=== PATIENT | female | born 1985 | race Caucasian/White ===

== ENCOUNTER 2021-01-20 19:24 | Emergency (ER) | payer MEDICAID ==
--- NOTE | 2021-01-20 19:38 | EDM.PDOC ---
ED HPI GENERAL MEDICAL PROBLEM - General Chief Complaint: General Stated Complaint: VOMITING Time Seen by Provider: 01/20/21 19:30 - History of Present Illness INITIAL COMMENTS - FREE TEXT/NARRATIVE: 5-year-old female presents the emergency room with nausea and vomiting. Patient had Vini-en-Y bariatric surgery done about a week ago at this point she is unable to keep much of anything down she gets a lot of nausea and vomiting with the smallest amounts. She is not aware of any fevers or chills her pain is not excessively poor. This surgery was done approximately a week ago. Another not then not be able to keep anything down patient seems to be doing okay. Abdomen Pain Score (Numeric/FACES): 4 - Related Data Allergies Allergy/AdvReac Type Severity Reaction Status Date / Time amoxicillin Allergy Severe Anaphylactic Verified 01/20/21 19:43 Shock ampicillin Allergy Severe Swelling Verified 01/20/21 19:44 clavulanic acid Allergy Severe Hives Verified 01/20/21 19:43 [From Augmentin] Penicillins Allergy Severe Anaphylactic Verified 01/20/21 19:43 Shock Sulfa (Sulfonamide Allergy Severe Anaphylactic Verified 01/20/21 19:43 Antibiotics) Shock Home Meds: Home Meds Ondansetron [Zofran ODT] 4 mg PO Q6H PRN 5 Days #12 tab.dis 02/26/20 [Rx] Hydrocodone Bit/Homatrop Me-Br [Hydrocodone Compound Syrup] 10 - 15 ml PO ASDIRECTED PRN 01/20/21 [History] Metoclopramide HCl [Reglan] 10 mg PO Q6H PRN 01/20/21 [History] Past Medical History HEENT History: Reports: Impaired Vision Other HEENT History: wears glasses Cardiovascular History: Reports: None Respiratory History: Reports: None Gastrointestinal History: Reports: None Genitourinary History: Reports: Pyelonephritis [employer]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: Musculoskeletal History: Reports: None Neurological History: Reports: None Psychiatric History: Reports: None Endocrine/Metabolic History: Reports: None Hematologic History: Reports: None Dermatologic History: Reports: None - Infectious Disease History Infectious Disease History: Reports: Chicken Pox - Past Surgical History HEENT Surgical History: Reports: Tonsillectomy Female Surgical History: Reports: Tubal Ligation Social & Family History - Family History Family Medical History: No Pertinent Family History - Caffeine Use Caffeine Use: Reports: Soda ED ROS GENERAL - Review of Systems Review Of Systems: See Below Constitutional: Reports: No Symptoms HEENT: Reports: No Symptoms Respiratory: Reports: No Symptoms Cardiovascular: Reports: No Symptoms GI/Abdominal: Reports: Abdominal Pain, Nausea, Vomiting : Reports: No Symptoms, Other (Decreased urinary volumes) Neurological: Reports: No Symptoms ED EXAM, GENERAL - Physical Exam Exam: See Below Exam Limited By: No Limitations General Appearance: Alert, No Apparent Distress Head: Atraumatic, Normocephalic Neck: Normal Inspection, Supple, Non-Tender, Full Range of Motion Respiratory/Chest: No Respiratory Distress, Lungs Clear, Normal Breath Sounds Cardiovascular: Regular Rate, Rhythm, No Edema, No Murmur GI/Abdominal: Normal Bowel Sounds, Soft, Non-Tender Back Exam: Normal Inspection. No: CVA Tenderness (L), CVA Tenderness (R) Extremities: Normal Inspection, No Pedal Edema Course - Vital Signs Last Recorded V/S: Last Vital Signs Temp 36.1 C 01/20/21 19:41 Pulse 96 01/20/21 19:41 Resp 20 01/20/21 19:41 BP 139/5 L 01/20/21 19:41 Pulse Ox 97 01/20/21 19:41 - Orders/Labs/Meds Orders: Active Orders 24 hr Category Date Time Status Lactated Ringers [Ringers, Lactated] 1,000 ml Med 01/20/21 19:45 Active IV ASDIRECTED Medication Orders Lactated Ringer's (Ringers, Lactated) 1,000 mls @ 125 mls/hr IV ASDIRECTED AYANA Labs: Laboratory Tests 01/20/21 01/20/21 Range/Units 19:58 19:58 WBC 5.52 (3.98-10.04) K/mm3 RBC 4.76 (3.98-5.22) M/mm3 Hgb 14.0 (11.2-15.7) gm/dl Hct 42.4 (34.1-44.9) % MCV 89.1 (79.4-94.8) fl MCH 29.4 (25.6-32.2) pg MCHC 33.0 (32.2-35.5) g/dl RDW Std Deviation 43.1 (36.4-46.3) fL Plt Count 265 (182-369) K/mm3 MPV 10.3 (9.4-12.3) fl Neut % (Auto) 65.9 (34.0-71.1) % Lymph % (Auto) 24.3 (19.3-51.7) % [place] % (Auto) 7.1 (4.7-12.5) % Eos % (Auto) 2.0 (0.7-5.8) Baso % (Auto) 0.5 (0.1-1.2) % Neut # (Auto) 3.64 (1.56-6.13) K/mm3 Lymph # (Auto) 1.34 (1.18-3.74) K/mm3 [place] # (Auto) 0.39 H (0.24-0.36) K/mm3 Eos # (Auto) 0.11 (0.04-0.36) K/mm3 Baso # (Auto) 0.03 (0.01-0.08) K/mm3 Sodium 142 (136-145) mEq/L Potassium 4.0 (3.5-5.1) mEq/L Chloride 103 (98-107) mEq/L Carbon Dioxide 28 (21-32) mEq/L Anion Gap 15.0 (5-15) BUN 14 (7-18) mg/dL Creatinine 1.1 H (0.55-1.02) mg/dL Est Cr Clr Drug Dosing 68.10 mL/min Estimated GFR (MDRD) 57 (>60) mL/min BUN/Creatinine Ratio 12.7 L (14-18) Glucose 97 (70-99) mg/dL Calcium 9.1 (8.5-10.1) mg/dL Total Bilirubin 0.6 (0.2-1.0) mg/dL AST 21 (15-37) U/L ALT 48 (14-59) U/L Alkaline Phosphatase 88 (46-116) U/L Total Protein 7.7 (6.4-8.2) g/dl Albumin 3.9 (3.4-5.0) g/dl Globulin 3.8 gm/dL Albumin/Globulin Ratio 1.0 (1-2) Lipase 356 (73-393) U/L Meds: Medications Generic Name Dose Route Start Last Admin Trade Name Freq PRN Reason Stop Dose Admin Lactated Ringer's 1,000 mls @ 125 mls/hr 01/20/21 19:45 Ringers, Lactated IV ASDIRECTED AYANA Discontinued Medications Generic Name Dose Route Start Last Admin Trade Name Viviane LEONE Reason Stop Dose Admin Lactated Ringer's 500 mls @ 999 mls/hr 01/20/21 19:42 01/20/21 20:00 Ringers, Lactated IV 01/20/21 20:12 999 mls/hr .BOLUS ONE Administration Metoclopramide HCl 5 mg 01/20/21 20:01 01/20/21 20:05 Metoclopramide 10 Mg/2 Ml Sdv IVPUSH 01/20/21 20:02 5 mg ONETIME ONE Administration - Re-Assessments/Exams Free Text/Narrative Re-Assessment/Exam: 01/20/21 20:05 The patient has been doing better with Reglan we will give her a dose of this as well. 01/20/21 20:59 He seemed a liter of fluids and nausea medication and she is doing much better her labs are nonconcerning. I recommended she follow-up with her surgeon later this week. Departure - Departure Time of Disposition: 20:59 Disposition: Home, Self-Care 01 Clinical Impression: Nausea and vomiting - Discharge Information Referrals: Anette Wetzel PA-C [Primary Care Provider] - Forms: ED Department Discharge Additional Instructions: Return to the emergency room with any questions problems worsening symptoms Push fluids use your Reglan as directed. Follow-up with your surgeon later this week if at all possible. Sepsis Event Note (ED) - Focused Exam Vital Signs: Vital Signs Temp Pulse Resp BP Pulse Ox 01/20/21 19:41 36.1 C 96 20 139/5 L 97 - My Orders Last 24 Hours: My Active Orders 01/20/21 19:45 Lactated Ringers [Ringers, Lactated] 1,000 ml IV ASDIRECTED - Assessment/Plan Last 24 Hours: My Active Orders 01/20/21 19:45 Lactated Ringers [Ringers, Lactated] 1,000 ml IV ASDIRECTED
[2021-01-20] MEDS ORDERED: Lactated Ringers 500 ML IV ONE (19:42)
[2021-01-20] MEDS ORDERED: Lactated Ringers 1,000 ML IV SCH (19:45)
[2021-01-20] MEDS ORDERED: Metoclopramide 10 MG/2 ML SDV IVPUSH ONE (20:01)
== END 2021-01-20 21:15 | disposition home or self-care (01) ==
LOC: JD.ED 19:24
DX: R11.2 Nausea with vomiting, unspecified (principal); Z88.0 Allergy status to penicillin; Z88.1 Allergy status to other antibiotic agents; Z88.2 Allergy status to sulfonamides
CPT/HCPCS: 36415; 80053; 83690; 85025; 96361; 96374; 99284; J2765; J7120; 99283

== ENCOUNTER 2021-02-13 12:53 | Emergency (ER) | payer MEDICAID ==
[2021-02-13] MEDS ORDERED: Ondansetron 4 MG/2 ML SDV IVPUSH ONE (13:11)
[2021-02-13] MEDS ORDERED: Sodium Chloride 0.9% 10 ML Syringe FLUSH PRN (13:11)
[2021-02-13] MEDS ORDERED: Lactated Ringers 1,000 ML IV SCH (13:15)
[2021-02-13] MEDS ORDERED: diphenhydrAMINE 50 MG/ML SDV IVPUSH ONE (13:48)
[2021-02-13] MEDS ORDERED: methylPREDNISolone Sodium Succinate 125 MG/2 ML SDV IVPUSH ONE (13:48)
--- NOTE | 2021-02-13 14:29 | EDM.PDOC ---
ED HPI GENERAL MEDICAL PROBLEM - General Chief Complaint: Gastrointestinal Problem Stated Complaint: DEHYDRATED Time Seen by Provider: 02/13/21 13:04 Source of Information: Reports: Patient History Limitations: Reports: No Limitations - History of Present Illness INITIAL COMMENTS - FREE TEXT/NARRATIVE: The patient presents with nausea, vomiting and possible dehydration. She had Vini-en-Y gastric bypass surgery by Dr Stock at [facility] in [place] about a month ago. She cannot keep anything down. She feels like she is dehydrated. She has no pain until she eats or drinks. She will get pain in the upper abdomen. She has nausea and vomiting. She has lost over 50 pounds. She has no fever, chills, cough, chest pain, shortness of breath, dysuria or diarrhea. Onset: Gradual Duration: Week(s): Location: Reports: Abdomen Quality: Reports: Sharp Severity: Moderate Improves with: Reports: None Worsens with: Reports: Eating Associated Symptoms: Reports: Nausea/Vomiting. Denies: Chest Pain, Cough, Fever/Chills, Headaches, Shortness of Breath - Related Data Allergies Allergy/AdvReac Type Severity Reaction Status Date / Time amoxicillin Allergy Severe Anaphylactic Verified 02/13/21 13:06 Shock ampicillin Allergy Severe Swelling Verified 02/13/21 13:06 clavulanic acid Allergy Severe Hives Verified 02/13/21 13:06 [From Augmentin] Penicillins Allergy Severe Anaphylactic Verified 02/13/21 13:06 Shock Sulfa (Sulfonamide Allergy Severe Anaphylactic Verified 02/13/21 13:06 Antibiotics) Shock diatrizoate meglumine Allergy Hives Verified 02/13/21 14:33 [From Gastrografin] diatrizoate sodium Allergy Hives Verified 02/13/21 14:33 [From Gastrografin] Iodinated Contrast Media Allergy Hives Verified 02/13/21 14:32 ondansetron [From Zofran] Allergy Hives Verified 02/13/21 13:55 Home Meds: Home Meds Omeprazole 1 cap PO DAILY 01/29/21 [History] Metoclopramide HCl [Reglan] 10 mg PO Q6H PRN #30 tablet 02/13/21 [Rx] traMADol [Ultram] 50 - 100 mg PO Q6H PRN #15 tab 02/13/21 [Rx] Past Medical History HEENT History: Reports: Impaired Vision Other HEENT History: wears glasses Cardiovascular History: Reports: None Respiratory History: Reports: None Gastrointestinal History: Reports: None Genitourinary History: Reports: 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: Musculoskeletal History: Reports: None Neurological History: Reports: None Psychiatric History: Reports: None Endocrine/Metabolic History: Reports: None Hematologic History: Reports: None Dermatologic History: Reports: None - Infectious Disease History Infectious Disease History: Reports: Chicken Pox - Past Surgical History HEENT Surgical History: Reports: Tonsillectomy GI Surgical History: Reports: Bariatric Procedure Female Surgical History: Reports: Tubal Ligation Social & Family History - Family History Family Medical History: No Pertinent Family History - Tobacco Use Tobacco Use Status *Q: Never Tobacco User Second Hand Smoke Exposure: No - Caffeine Use Caffeine Use: Reports: None - Recreational Drug Use Recreational Drug Use: No ED ROS GENERAL - Review of Systems Review Of Systems: See Below Constitutional: Reports: No Symptoms HEENT: Reports: No Symptoms Respiratory: Reports: No Symptoms Cardiovascular: Reports: No Symptoms Endocrine: Reports: No Symptoms GI/Abdominal: Reports: Abdominal Pain, Nausea, Vomiting. Denies: Diarrhea : Reports: No Symptoms Musculoskeletal: Reports: No Symptoms ED EXAM, GI/ABD - Physical Exam Exam: See Below Exam Limited By: No Limitations General Appearance: Alert, No Apparent Distress Ears: Normal External Exam Nose: Normal Inspection Head: Atraumatic, Normocephalic Neck: Normal Inspection Respiratory/Chest: No Respiratory Distress, Lungs Clear, Normal Breath Sounds Cardiovascular: Regular Rate, Rhythm, No Edema, No Murmur GI/Abdominal Exam: Soft, No Organomegaly, No Mass, Tender (Mild to moderate pain upon palpation to the upper abdomen) Course - Vital Signs Last Recorded V/S: Last Vital Signs Temp 97 F 02/13/21 13:04 Pulse 95 02/13/21 13:04 Resp 16 02/13/21 13:04 BP 135/85 02/13/21 13:04 Pulse Ox 97 02/13/21 13:04 - Orders/Labs/Meds Orders: Active Orders 24 hr Category Date Time Status Peripheral IV Care [RC] . DIRECTED Care 02/13/21 13:11 Active UA W/MICROSCOPIC [URIN] Stat Lab 02/13/21 13:11 Ordered Lactated Ringers [Ringers, Lactated] 1,000 ml Med 02/13/21 13:15 Active IV ASDIRECTED Sodium Chloride 0.9% [Saline Flush] Med 02/13/21 13:11 Active 10 ml FLUSH ASDIRECTED PRN ED Antiemetic Medication Reflex [OM.PC] Stat Oth 02/13/21 13:13 Ordered Peripheral IV Insertion Adult [OM.PC] Stat Oth 02/13/21 13:11 Ordered Medication Orders Lactated Ringer's (Ringers, Lactated) 1,000 mls @ 1,000 mls/hr IV ASDIRECTED AYANA Last Admin: 02/13/21 13:46 Dose: 1,000 mls/hr Documented by: CHULA Sodium Chloride (Sodium Chloride 0.9% 10 Ml Syringe) 10 ml FLUSH ASDIRECTED PRN PRN Reason: Keep Vein Open Last Admin: 02/13/21 13:46 Dose: 10 ml Documented by: CHULA Labs: Laboratory Tests 02/13/21 02/13/21 02/13/21 Range/Units 13:59 13:59 13:59 WBC 2.65 L (3.98-10.04) K/mm3 RBC 4.84 (3.98-5.22) M/mm3 Hgb 14.4 (11.2-15.7) gm/dl Hct 42.5 (34.1-44.9) % MCV 87.8 (79.4-94.8) fl MCH 29.8 (25.6-32.2) pg MCHC 33.9 (32.2-35.5) g/dl RDW Std Deviation 46.1 (36.4-46.3) fL Plt Count 162 L D (182-369) K/mm3 MPV 11.2 (9.4-12.3) fl Neut % (Auto) 47.5 (34.0-71.1) % Lymph % (Auto) 38.9 (19.3-51.7) % [place] % (Auto) 10.9 (4.7-12.5) % Eos % (Auto) 1.9 (0.7-5.8) Baso % (Auto) 0.8 (0.1-1.2) % Neut # (Auto) 1.26 L (1.56-6.13) K/mm3 Lymph # (Auto) 1.03 L (1.18-3.74) K/mm3 [place] # (Auto) 0.29 (0.24-0.36) K/mm3 Eos # (Auto) 0.05 (0.04-0.36) K/mm3 Baso # (Auto) 0.02 (0.01-0.08) K/mm3 Sodium 144 (136-145) mEq/L Potassium 3.4 L (3.5-5.1) mEq/L Chloride 105 (98-107) mEq/L Carbon Dioxide 22 (21-32) mEq/L Anion Gap 20.4 H (5-15) BUN 6 L (7-18) mg/dL Creatinine 0.7 (0.55-1.02) mg/dL Est Cr Clr Drug Dosing 107.01 mL/min Estimated GFR (MDRD) > 60 (>60) mL/min BUN/Creatinine Ratio 8.6 L (14-18) Glucose 77 (70-99) mg/dL Calcium 9.0 (8.5-10.1) mg/dL Magnesium 1.5 L (1.8-2.4) mg/dL Total Bilirubin 0.7 (0.2-1.0) mg/dL AST 27 (15-37) U/L ALT 35 (14-59) U/L Alkaline Phosphatase 77 (46-116) U/L Total Protein 7.0 (6.4-8.2) g/dl Albumin 3.7 (3.4-5.0) g/dl Globulin 3.3 gm/dL Albumin/Globulin Ratio 1.1 (1-2) Lipase 303 (73-393) U/L HCG, Qual Negative (NEGATIVE) Meds: Medications Generic Name Dose Route Start Last Admin Trade Name Freq PRN Reason Stop Dose Admin Lactated Ringer's 1,000 mls @ 1,000 mls/hr 02/13/21 13:15 02/13/21 13:46 Ringers, Lactated IV 1,000 mls/hr ASDIRECTED AYANA Administration Sodium Chloride 10 ml 02/13/21 13:11 02/13/21 13:46 Sodium Chloride 0.9% 10 Ml Syringe FLUSH 10 ml ASDIRECTED PRN Administration Keep Vein Open Discontinued Medications Generic Name Dose Route Start Last Admin Trade Name Freq PRN Reason Stop Dose Admin Diatrizoate Meglum/Diatrizoate Sod 90 ml 02/13/21 14:32 02/13/21 14:33 Diatrizoate Meglumine/Diatrizoate Sodium 37% 120 Ml Bottle PO 02/13/21 14:33 45 ml ONETIME ONE Administration Diphenhydramine HCl 50 mg 02/13/21 13:48 02/13/21 14:03 Diphenhydramine 50 Mg/Ml Sdv IVPUSH 02/13/21 13:49 50 mg ONETIME ONE Administration Lactated Ringer's 1,000 mls @ 1,000 mls/hr 02/13/21 15:11 02/13/21 15:27 Ringers, Lactated IV 02/13/21 16:10 1,000 mls/hr .BOLUS ONE Administration Iopamidol 100 ml 02/13/21 14:32 02/13/21 14:33 Iopamidol 612 Mg/Ml 100 Ml Bottle IVPUSH 02/13/21 14:33 100 ml ONETIME ONE Administration Iopamidol 50 ml 02/13/21 14:32 02/13/21 14:33 Iopamidol 612 Mg/Ml 50 Ml Sdv IVPUSH 02/13/21 14:33 50 ml ONETIME ONE Administration Methylprednisolone Sodium Succinate 125 mg 02/13/21 13:48 02/13/21 14:03 Methylprednisolone Sodium Succinate 125 Mg/2 Ml Sdv IVPUSH 02/13/21 13:49 125 mg ONETIME ONE Administration Ondansetron HCl 4 mg 02/13/21 13:11 02/13/21 13:46 Ondansetron 4 Mg/2 Ml Sdv IVPUSH 02/13/21 13:12 4 mg ONETIME ONE Administration Sodium Chloride 10 ml 02/13/21 14:32 02/13/21 14:33 Sodium Chloride 0.9% 10 Ml Syringe FLUSH 02/13/21 14:33 10 ml ONETIME ONE Administration - Re-Assessments/Exams Free Text/Narrative Re-Assessment/Exam: 02/13/21 14:32 I ordered an IV LR 1L bolus, zofran 4mg IV, labs, UA and a CT of her abdomen and pelvis with IV and oral contrast. 02/13/21 14:34 Her WBC was low at 2.65. Her K was low at 3.4. Her anion gap was elevated at 20.4. Her magnesium is low at 1.5. Her lipase is normal. Her HCG is negative. She started breaking out in hives. I had her stop drinking the oral contrast. She may be allergic to that or the zofran. I ordered solu-medrol 125mg IV and benadryl 50mg IV. 02/13/21 15:[address] shows spleen is slightly enlarged with a length of 14.3 cm. Previous stomach surgery is noted. No bowel dilatation or inflammatory change is seen. Mild increased stool is seen throughout the colon. No additional abnormality is appreciated on CT study of the abdomen and pelvis. She feels a little better. I have called [facility] in [place] and talked with Dr Stock. I will try her on some reglan and she should call the coordinator tomorrow and try to get in sooner. Departure - Departure Time of Disposition: 16:40 Disposition: Home, Self-Care 01 Condition: Good Clinical Impression: Nausea and vomiting Qualifiers: Vomiting type: unspecified Vomiting Intractability: unspecified Qualified Code(s): R11.2 - Nausea with vomiting, unspecified Abdominal pain Qualifiers: Abdominal location: upper abdomen, unspecified Qualified Code(s): R10.10 - Upper abdominal pain, unspecified - Discharge Information *PRESCRIPTION DRUG MONITORING PROGRAM REVIEWED*: No *COPY OF PRESCRIPTION DRUG MONITORING REPORT IN PATIENT CRISTOFER: No Prescriptions: Metoclopramide HCl [Reglan] 10 mg PO Q6H PRN #30 tablet PRN Reason: Nausea/Vomiting traMADol [Ultram] 50 - 100 mg PO Q6H PRN #15 tab PRN Reason: Pain Referrals: Anette Wetzel PA-C [Primary Care Provider] - 1 Week Forms: ED Department Discharge Additional Instructions: Drink more fluids. Take the reglan every 6 hours as needed for nausea and vomiting. Take the ultram 1 to 2 pills every 6 hours as needed for pain. The ultram can cause constipation so keep drinking fluids or take a stool softener like colace. Call Dr Stock's office tomorrow. Please return if you are worse. Sepsis Event Note (ED) - Evaluation Sepsis Screening Result: No Definite Risk - Focused Exam Vital Signs: Vital Signs Temp Pulse Resp BP Pulse Ox 02/13/21 13:04 97 F 95 16 135/85 97 - My Orders Last 24 Hours: My Active Orders 02/13/21 13:11 Peripheral IV Care [RC] . DIRECTED UA W/MICROSCOPIC [URIN] Stat Sodium Chloride 0.9% [Saline Flush] 10 ml FLUSH ASDIRECTED PRN Peripheral IV Insertion Adult [OM.PC] Stat 02/13/21 13:13 ED Antiemetic Medication Reflex [OM.PC] Stat 02/13/21 13:15 Lactated Ringers [Ringers, Lactated] 1,000 ml IV ASDIRECTED - Assessment/Plan Last 24 Hours: My Active Orders 02/13/21 13:11 Peripheral IV Care [RC] . DIRECTED UA W/MICROSCOPIC [URIN] Stat Sodium Chloride 0.9% [Saline Flush] 10 ml FLUSH ASDIRECTED PRN Peripheral IV Insertion Adult [OM.PC] Stat 02/13/21 13:13 ED Antiemetic Medication Reflex [OM.PC] Stat 02/13/21 13:15 Lactated Ringers [Ringers, Lactated] 1,000 ml IV ASDIRECTED
[2021-02-13] MEDS ORDERED: Diatrizoate Meglumine/Diatrizoate Sodium 37% 120 ML Bottle PO ONE (14:32)
[2021-02-13] MEDS ORDERED: Sodium Chloride 0.9% 10 ML Syringe FLUSH ONE (14:32)
[2021-02-13] MEDS ORDERED: Iopamidol 612 MG/ML 50 ML SDV IVPUSH ONE (14:32)
[2021-02-13] MEDS ORDERED: Iopamidol 612 MG/ML 100 ML Bottle IVPUSH ONE (14:32)
--- NOTE | 2021-02-13 15:00 | CT ---
CT abdomen and pelvis Technique: Multiple axial sections were obtained from above the dome of the diaphragm inferiorly through the pubic symphysis. Intravenous contrast was utilized. Questionable minimal oral contrast is noted. Delayed images were obtained through the bladder. Reconstructed coronal and sagittal images were obtained. Comparison: No previous abdominal or pelvic CT study or other abdominal imaging is available. Findings: Visualized lung bases show nothing acute. Liver contains no focal parenchymal abnormality. Spleen size is slightly enlarged at 14.3 cm in length. Prior gastric surgery is noted. Adrenal glands show no nodule. Gallbladder contains no calcified gallstones. Pancreas is within normal limits. Abdominal aorta shows no aneurysm. No retroperitoneal adenopathy is seen. Kidneys show symmetric contrast enhancement. Delayed images show contrast within the distal ureters and within the bladder. No bowel dilatation is seen. No pelvic mass or adenopathy is seen. Appendix is seen which is normal. Slight increased stool is seen throughout the colon. Bone window settings were reviewed. Minimal degenerative change is seen within the lower thoracic spine. No acute osseous finding is seen. Impression: 1. Spleen is slightly enlarged with a length of 14.3 cm. 2. Previous stomach surgery is noted. No bowel dilatation or inflammatory change is seen. 3. Mild increased stool is seen throughout the colon. 4. No additional abnormality is appreciated on CT study of the abdomen and pelvis. Diagnostic code #2
[2021-02-13] MEDS ORDERED: Lactated Ringers 1,000 ML IV ONE (15:11)
== END 2021-02-13 16:40 | disposition home or self-care (01) ==
LOC: JD.ED 12:53
DX: R11.2 Nausea with vomiting, unspecified (principal); R10.10 Upper abdominal pain, unspecified; Z88.0 Allergy status to penicillin; Z88.2 Allergy status to sulfonamides; Z88.1 Allergy status to other antibiotic agents; Z91.041 Radiographic dye allergy status; Z88.8 Allergy status to other drugs, medicaments and biological substances; Z79.899 Other long term (current) drug therapy
CPT/HCPCS: 36415; 74177; 80053; 83690; 83735; 84703; 85025; 96374; 96375; 99284; J1200; J2405; J2930; J7120; Q9963; Q9967

== ENCOUNTER 2021-12-27 01:46 | Day surgery (SDC) | payer MEDICAID ==
[2021-12-27] MEDS ORDERED: Lactated Ringers 1,000 ML IV ONE ×2 (02:14→07:58)
[2021-12-27] MEDS ORDERED: diphenhydrAMINE 50 MG/ML SDV IVPUSH ONE (02:34)
[2021-12-27] MEDS ORDERED: Morphine 4 MG/ML Syringe IVPUSH ONE ×3 (02:34→06:22)
[2021-12-27] MEDS ORDERED: Iopamidol 612 MG/ML 100 ML Bottle IVPUSH ONE (03:40)
[2021-12-27] MEDS ORDERED: Sodium Chloride 0.9% 10 ML Syringe FLUSH PRN (03:40)
[2021-12-27] MEDS ORDERED: Sucralfate 1 GM Tab PO ONE (03:50)
[2021-12-27] MEDS ORDERED: Dicyclomine 10 MG Cap PO ONE (04:42)
[2021-12-27] MEDS ORDERED: Lactated Ringers 1,000 ML IV SCH (08:15)
[2021-12-27] MEDS ORDERED: Lidocaine 1% with EPINEPHrine 1:100,000 20 ML MDV ONE (08:57)
[2021-12-27] MEDS ORDERED: Bupivacaine 0.5%/EPINEPHrine 1:200,000 50 ML MDV ONE (08:57)
[2021-12-27] MEDS ORDERED: Rocuronium 50 MG/5 ML Vial ONE (09:06)
[2021-12-27] MEDS ORDERED: diphenhydrAMINE 50 MG/ML SDV ONE (09:06)
[2021-12-27] MEDS ORDERED: Ondansetron 4 MG/2 ML SDV ONE (09:06)
[2021-12-27] MEDS ORDERED: Lidocaine 1% 5 ML VIAL ONE (09:06)
[2021-12-27] MEDS ORDERED: Midazolam 1 MG/ML 2 ML SDV ONE (09:07)
[2021-12-27] MEDS ORDERED: fentaNYL 250 MCG/5 ML SDV ONE (09:07)
[2021-12-27] MEDS ORDERED: Propofol 200 MG/20 ML SDV ONE (09:07)
[2021-12-27] MEDS ORDERED: Clindamycin Phosphate in D5W 900 MG in Premix Bag 1 BAG IV ONE ×2 (09:50)
[2021-12-27] MEDS ORDERED: Lactated Ringers 1,000 ML ONE (10:03)
[2021-12-27] MEDS ORDERED: HYDROmorphone 0.5 MG/0.5 ML Syringe ONE (10:03)
[2021-12-27] MEDS ORDERED: Ondansetron 4 MG/2 ML SDV IVPUSH PRN (10:08)
[2021-12-27] MEDS ORDERED: HYDROmorphone 0.5 MG/0.5 ML Syringe IVPUSH PRN (10:08)
[2021-12-27] MEDS ORDERED: fentaNYL 100 MCG/2 ML SDV IVPUSH PRN (10:08)
[2021-12-27] MEDS ORDERED: Acetaminophen 325 MG Tab PO PRN (11:47)
[2021-12-27] MEDS ORDERED: Acetaminophen/HYDROcodone 325-10 MG Tab PO PRN (11:47)
[2021-12-27] MEDS ORDERED: Docusate Sodium 100 MG Cap PO PRN (11:47)
== END 2021-12-27 19:24 | disposition home or self-care (01) ==
LOC: JD.ED 01:46 → JD.SDS 08:27 → JD.MS 15:39 → JD.SDS 19:24
PROVIDERS: ATTEND Surgery
DX: K46.9 Unspecified abdominal hernia without obstruction or gangrene (principal); E66.9 Obesity, unspecified; Z88.0 Allergy status to penicillin; Z88.1 Allergy status to other antibiotic agents; Z88.2 Allergy status to sulfonamides; Z91.041 Radiographic dye allergy status; Z88.8 Allergy status to other drugs, medicaments and biological substances; Z79.899 Other long term (current) drug therapy; Z98.890 Other specified postprocedural states
CPT/HCPCS: 36415; 44238; 74177; 80053; 81001; 83605; 83690; 84703; 85025; 96361; 96374; 96375; 96376; 99285; A9270; J1170; J1200; J2250; J2270; J2405; J2704; J3010; J3490; J7120; Q9967; 00840; 99140; 99284

== ENCOUNTER 2022-12-23 06:33 | Day surgery (SDC) | payer MEDICAID ==
[~2022-12-23 06:33] MED LIST: Lactated Ringers 1,000 ML IV SCH; Sodium Chloride 0.9% 10 ML Syringe FLUSH PRN; Sodium Chloride 0.9% 10 ML Syringe FLUSH SCH
[2022-12-23] MEDS ORDERED: Propofol 200 MG/20 ML SDV ONE ×2 (06:59→07:06)
[2022-12-23] MEDS ORDERED: Midazolam 1 MG/ML 2 ML SDV ONE (06:59)
[2022-12-23] MEDS ORDERED: Rocuronium 50 MG/5 ML Vial ONE ×2 (07:00→08:39)
[2022-12-23] MEDS ORDERED: Lidocaine 1% 2 ML ONE (07:00)
[2022-12-23] MEDS ORDERED: fentaNYL 250 MCG/5 ML SDV ONE (07:00)
[2022-12-23 07:01] LABS: BASOPHILS ABSOLUTE AUTO 0.04 K/mm3 (0.01-0.08); EOSINOPHILS ABSOLUTE AUTO 0.12 K/mm3 (0.04-0.36); HEMATOCRIT 42.2 % (34.1-44.9); HEMOGLOBIN 13.6 gm/dl (11.2-15.7); LYMPHOCYTES ABSOLUTE AUTO 2.04 K/mm3 (1.18-3.74); LYMPHOCYTES PERCENT AUTO 50.4 % (19.3-51.7); MEAN CORPUSCULAR HEMOGLOBIN 28.3 pg (25.6-32.2); MEAN CORPUSCULAR HGB CONC 32.2 g/dl (32.2-35.5); MEAN CORPUSCULAR VOLUME 87.9 fl (79.4-94.8); MEAN PLATELET VOLUME 10.4 fl (9.4-12.3); MONOCYTES ABSOLUTE AUTO 0.34 K/mm3 (0.24-0.36); MONOCYTES PERCENT AUTO 8.4 % (4.7-12.5); NEUTROPHILS ABSOLUTE AUTO 1.51 K/mm3 (1.56-6.13); NEUTROPHILS PERCENT AUTO 37.2 % (34.0-71.1); PLATELET COUNT,PLT 229 K/mm3 (182-369); WHITE BLOOD CELL COUNT,WBC 4.05 K/mm3 (3.98-10.04)
[2022-12-23 07:11] LABS: ANION GAP 14.8 (5-15); POTASSIUM,K 3.8 mEq/L (3.5-5.1)
[2022-12-23] MEDS ORDERED: Lidocaine 1% 10 ML MDV ONE (07:14)
[2022-12-23] MEDS ORDERED: Bupivacaine 0.5% 10 ML SDV ONE (07:15)
[2022-12-23] MEDS ORDERED: Sodium Chloride 0.9% 50 ML SDV ONE (07:15)
[2022-12-23] MEDS ORDERED: HYDROmorphone 0.5 MG/0.5 ML Syringe IVPUSH PRN (07:20)
[2022-12-23] MEDS ORDERED: fentaNYL 100 MCG/2 ML SDV IVPUSH PRN (07:20)
[2022-12-23] MEDS ORDERED: Ondansetron 4 MG/2 ML SDV IVPUSH PRN (07:20)
[2022-12-23] MEDS ORDERED: Bupivacaine 0.5%/EPINEPHrine 1:200,000 50 ML MDV ONE (07:27)
[2022-12-23] MEDS ORDERED: Bupivacaine 0.25%/EPINEPHrine 1:200,000 30 ML SDV ONE (07:28)
[2022-12-23] MEDS ORDERED: ceFAZolin 2 GM Vial ONE (07:30)
[2022-12-23] MEDS ORDERED: Dexamethasone 4 MG/ML 5 ML MDV ONE (08:39)
[2022-12-23] MEDS ORDERED: Sugammadex Sodium 200 MG/2 ML VIAL ONE (08:40)
[2022-12-23] MEDS ORDERED: HYDROmorphone 0.5 MG/0.5 ML Syringe ONE ×2 (08:40→09:24)
[2022-12-23] MEDS ORDERED: Ondansetron 4 MG/2 ML SDV ONE (09:00)
[2022-12-23] MEDS ORDERED: Ketorolac 30 MG/ML SDV ONE (09:39)
[2022-12-23] MEDS ORDERED: Acetaminophen/oxyCODONE 325-5 MG Tab PO PRN (10:23)
[2022-12-23] MEDS ORDERED: Ibuprofen 600 MG Tab PO PRN (18:00)
== END 2022-12-23 14:55 | disposition home or self-care (01) ==
LOC: JD.SDS 06:33
PROVIDERS: ATTEND Obstetrics & Gynecology
DX: N80.03 Adenomyosis of the uterus (principal); E66.01 Morbid (severe) obesity due to excess calories; F41.9 Anxiety disorder, unspecified; F32.A Depression, unspecified; M19.90 Unspecified osteoarthritis, unspecified site; Z98.84 Bariatric surgery status; Z88.0 Allergy status to penicillin; Z88.2 Allergy status to sulfonamides; Z88.1 Allergy status to other antibiotic agents; Z91.041 Radiographic dye allergy status; Z98.890 Other specified postprocedural states; Z79.899 Other long term (current) drug therapy; Z68.37 Body mass index [BMI] 37.0-37.9, adult
CPT/HCPCS: 36415; 58552; 80051; 81025; 85025; 86850; 86900; 86901; A9270; J0690; J1100; J1170; J1885; J2250; J2405; J2704; J3010; J3490; J7120; 00944